=== PATIENT | male | born 2000 | race Caucasian/White ===

== ENCOUNTER 2021-09-14 20:57 | Emergency (ER) | payer SELFPAY ==
[~2021-09-14] VITALS: Ht 175.3 cm; Wt 56.7 kg
[2021-09-14] MEDS ORDERED: IBUP-1955 PO (22:07)
[2021-09-14] MEDS ORDERED: BACI30OI9 TP (22:07)
[2021-09-14 22:41] VITALS: BP 148/77
--- NOTE | 2021-09-14 22:41 | NUR ---
Patient discharged to home in stable condition. Written and verbal after care instructions given. Patient verbalizes understanding of instruction.
== END 2021-09-14 22:41 | disposition home or self-care (01) ==
LOC: ER 21:09
DX: S70.212A Abrasion, left hip, initial encounter (principal); S80.212A Abrasion, left knee, initial encounter; V43.52XA Car driver injured in collision with other type car in traffic accident, initial encounter; Y93.89 Activity, other specified; Y92.410 Unspecified street and highway as the place of occurrence of the external cause; Y99.8 Other external cause status
CPT/HCPCS: 73502; 73564-TC